=== PATIENT | male | born 1965 | race Hispanic/Latino ===

== ENCOUNTER 2019-02-09 01:20 | Emergency (ER) | payer SELFPAY ==
[2019-02-09 03:05] LABS: Hemoglobin 11.9 g/dL (14.0-18.0); Mean Corpuscular HGB CONC 30.9 g/dL (32.0-36.0); Mean Corpuscular Hemoglobin 22.1 pg (27.0-31.0); Mean Corpuscular Volume 71.5 fL (78.0-98.0); Mean Platelet Volume 9.1 fL (7.4-10.4); Platelet Count 323 thou/uL (130-400); RBC Distribution Width 14.8 % (11.5-14.5); Red Blood Cell (RBC) Count 5.38 mill/uL (4.70-6.10); White Blood Cell (WBC) Count 12.9 thou/uL (4.8-10.8)
[2019-02-09 03:22] LABS: ALT (SGPT) 12 U/L (8-55); AST (SGOT) 16 U/L (5-34); Albumin 4.2 g/dL (3.5-5.0); Alkaline Phosphatase 107 U/L (40-150); Anion Gap 13 mmol/L (10-20); BUN (Urea Nitrogen) 17 mg/dL (8.4-25.7); Bilirubin, Total 0.6 mg/dL (0.2-1.2); CK (CPK) 78 U/L (30-200); Calc. Creatinine Clearance 0 mL/min (70-130); Calcium 8.9 mg/dL (7.8-10.44); Carbon Dioxide 21 mmol/L (22-29); Chloride 106 mmol/L (98-107); Estimated GFR-MDRD Greater than 90; Glucose 95 mg/dL (70-105); Potassium 3.4 mmol/L (3.5-5.1); Protein, Total 8.2 g/dL (6.0-8.3); Sodium 137 mmol/L (136-145)
[2019-02-09 03:30] LABS: #Basophils 0.1 thou/uL (0.0-0.2); #Lymphocytes 2.5 thou/uL (1.20-3.40); #Neutrophils 9.4 thou/uL (1.40-6.50); %Basophils 0.6 % (0.0-1.0); %Eosinophils 0.1 % (0.0-10.0); %Lymphocytes 19.1 % (21.0-51.0); %Monocytes 7.6 % (0.0-10.0); %Neutrophils 72.6 % (42.0-75.0); RBC Morphology Normal
--- NOTE | 2019-02-09 07:54 | RAD ---
XR Chest Pa Lat STANDARD HISTORY: Chest pain, back pain COMPARISON: None. FINDINGS: The heart size is normal the aorta is tortuous the lungs are well expanded without focal ar eas of consolidation, pneumothoraces or pleural effusions. Degenerative changes are present in the spine. IMPRESSION: No acute process
== END 2019-02-09 04:17 | disposition home or self-care (01) ==
LOC: ERS 01:20
DX: M54.12 Radiculopathy, cervical region (principal); M25.512 Pain in left shoulder
CPT/HCPCS: 36415; 71046; 80053; 82550; 83880; 84484; 85025; 93005

== ENCOUNTER 2019-02-26 20:34 | Emergency (ER) | payer SELFPAY | END 2019-02-26 21:26 | disposition home or self-care (01) | LOC: ERS 20:34 | DX: M54.2 Cervicalgia (principal) | CPT/HCPCS: 99283 ==

== ENCOUNTER 2019-07-09 15:13 | Emergency (ER) | payer SELFPAY ==
--- NOTE | 2019-07-09 17:23 | RAD ---
XR Shoulder Lt 3 View STANDARD HISTORY: Left shoulder pain COMPARISON: None. FINDINGS: The before meals and glenohumeral joints appear unremarkable. There is calcification associ ated with the rotator cuff consistent with a calcific tendinitis. No other significant findings. IMPRESSION: Calcification associated the rotator cuff consistent with a calcific tendinitis.
--- NOTE | 2019-07-09 17:24 | RAD ---
XR Cerv Sp Ap Lat STANDARD HISTORY: Neck pain COMPARISON: None. FINDINGS: The vertebral bodies are normal in height small osteophytes are seen without significant di sc narrowing. Mild degenerative facet changes are present. No soft tissue swelling. IMPRESSION: Minimal arthritic changes of the spine.
== END 2019-07-09 18:15 | disposition home or self-care (01) ==
LOC: ERS 15:13
DX: M75.92 Shoulder lesion, unspecified, left shoulder (principal)
CPT/HCPCS: 72040; 93005; 96372

== ENCOUNTER 2022-04-29 23:59 | Emergency (ER) | payer SELFPAY ==
[2022-04-30] MEDS ORDERED: Ketorolac Tromethamine 30 MG/ML VIAL ONE (01:38)
== END 2022-04-30 02:10 | disposition home or self-care (01) ==
LOC: ERS 23:59
DX: M25.511 Pain in right shoulder (principal)
CPT/HCPCS: 96372; J1885

== ENCOUNTER 2023-01-05 23:14 | Emergency (ER) | payer SELFPAY ==
[2023-01-06] MEDS ORDERED: Ketorolac Tromethamine 30 MG/ML VIAL ONE (03:56)
[2023-01-06] MEDS ORDERED: Orphenadrine Citrate 60 MG/2 ML VIAL ONE (03:56)
== END 2023-01-06 05:10 | disposition home or self-care (01) ==
LOC: ERS 23:14
DX: M62.838 Other muscle spasm (principal)
CPT/HCPCS: 93005; 96372; J1885; J2360